=== PATIENT | female | born 2000 | race Two or more races ===

== ENCOUNTER 2020-02-13 13:15 | Emergency (ER) | payer MEDICAID ==
[2020-02-13] MEDS ORDERED: Ondansetron 4 MG/2 ML SDV IVPUSH ONE (13:45)
[2020-02-13] MEDS ORDERED: Dextrose 5%-Lactated Ringers 1,000 ML IV SCH (13:45)
--- NOTE | 2020-02-13 13:54 | EDM.PDOC ---
ED HPI GENERAL MEDICAL PROBLEM - General Chief Complaint: Syncope Stated Complaint: 14 WEEKS PREG-PASSED OUT Time Seen by Provider: 02/13/20 13:44 Source of Information: Reports: Patient, Family () History Limitations: Reports: No Limitations - History of Present Illness INITIAL COMMENTS - FREE TEXT/NARRATIVE: 19-year-old female who is 1 para 0 presents to the ED in the accompaniment of her after suffering a syncopal event at home. They were working in the kitchen making pancakes and her was away from her when he heard her fall to the floor. She felt dizzy lightheaded and was headed to the bathroom as she was thought she was going to vomit. He found her sitting up against the door jam unresponsive. He picked her up and put on the couch and turned the fan on and put a cold cloth on her forehead and within a minute she was able to respond to him normally. He did not witness any tonic-clonic activities to suggest seizure. Patient is 1 para 0 and has been experiencing a lot of nausea and vomiting the with a documented 6 to 8 pound weight loss since the 8-week kiara. Is been able to keep anything down yet this morning. Denies fever chills. At present she does not feel she got hurt other than her right buttock and hip. Particular she denies any head pain. Of note she has diffuse pustular acne of her face forehead with an abscess developing left anterior cheek. Is not been taking any medicine for this. Is nauseated at this time. Orthostatic BPs were unchanged with a blood pressure of 100 systolic standing. Onset: Today Onset Date: 02/13/20 Onset Time: 13:00 Duration: Minutes: Location: Reports: Generalized (Couple event at home. Contusion right buttock hip transient loss of consciousness for 20-30 seconds?) Quality: Reports: Other (Has an ache in her right buttock hip area.) Severity: Moderate Improves with: Reports: Rest Worsens with: Reports: Other (Hurts to touch.) Context: Reports: Other (Syncopal event at home.). Denies: Activity, Exercise, Lifting, Sick Contact, Trauma Associated Symptoms: Reports: Malaise (Is very tired during from the .), Nausea/Vomiting, Weakness. 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 (see below) (Thing will stay down so far today.) Right Hip Pain Score (Numeric/FACES): 6 - Related Data Allergies Allergy/AdvReac Type Severity Reaction Status Date / Time No Known Allergies Allergy Verified 02/13/20 13:26 Home Meds: Home Meds Ondansetron [Zofran ODT] 4 mg PO Q6H PRN 02/13/20 [History] cephALEXin [Cephalexin] 500 mg PO TID #30 capsule 02/13/20 [Rx] Past Medical History : 1 Para: 0 LMP (Approximate): > 3 Months (Jim 14 weeks gestation) - Past Surgical History Oncologic Surgical History: Reports: Lumpectomy Social & Family History - Family History Family Medical History: Noncontributory - Tobacco Use Smoking Status *Q: Never Smoker Second Hand Smoke Exposure: No - Living Situation & Occupation Living situation: Reports: Occupation: Unemployed ED ROS GENERAL - Review of Systems Review Of Systems: See Below Constitutional: Reports: Malaise, Weakness, Fatigue, Decreased Appetite (Due to hyperemesis gravidarum.), Weight Loss. Denies: Fever, Chills HEENT: Reports: No Symptoms Respiratory: Reports: No Symptoms Cardiovascular: Reports: Blood Pressure Problem (Easily gets lightheaded particularly after vomiting. She has not had any syncopal episodes however), Lightheadedness. Denies: Claudication, Dyspnea on Exertion, Edema, Orthopnea, Palpitations (Often in the last 6 weeks) Endocrine: Reports: Fatigue, Polyuria GI/Abdominal: Reports: Decreased Appetite, Nausea, Vomiting (Recurrent nausea and vomiting secondary to would be labeled as hyperemesis gravidarum since she has had greater than a 6 pound weight loss) : Reports: Frequency, Other (Clinically 14 weeks gestation.) Musculoskeletal: Reports: No Symptoms Skin: Reports: Other (Has posterior acne on her face.) Neurological: Reports: Dizziness (Dizzy lightheaded easily), Weakness Psychiatric: Reports: No Symptoms Hematologic/Lymphatic: Reports: No Symptoms Immunologic: Reports: No Symptoms - Physical Exam Exam: See Below Exam Limited By: No Limitations General Appearance: Alert, WD/WN, Anxious, Mild Distress, Other (Temperature is 36.8 heart rate 75 and sinus respiratory to 16 O2 sats 99% room air BP 109 / 74. Supine today was 99/67 and did go up to 101/74 standing.) Eye Exam: Bilateral Eye: Normal Inspection, PERRL Throat/Mouth: Other (Dental or tongue injuries from the fall.) Head Exam: Atraumatic, Normocephalic, Other (No signs of closed head injury.) Neck: Normal Inspection, Supple, Non-Tender, Full Range of Motion. No: Carotid Bruit, Lymphadenopathy (L), Lymphadenopathy (R) Respiratory/Chest: No Respiratory Distress, Lungs Clear, Normal Breath Sounds, No Accessory Muscle Use, Chest Non-Tender Cardiovascular: Normal Peripheral Pulses, Regular Rate, Rhythm, No Edema, No Gallop, No Murmur, No Rub GI/Abdominal: Normal Bowel Sounds, Soft, Non-Tender, No Organomegaly, No Abnormal Bruit, Pelvis Stable, Other (Uterine fundus is just palpable suprapubically which correlates with 14 weeks gestation.) Neuro Exam (Abbreviated): Alert, Oriented, CN II-XII Intact, Normal Cognition, Normal Gait, No Motor/Sensory Deficits, Other (No pronator drift. Normal rapid alternating movements normal [id number] assessment.) Back Exam: Normal Inspection, Full Range of Motion, Other Extremities: Normal Inspection (No pain on firm compression of lumbar and thoracic spine), Normal Range of Motion, Other (He does have some pain on firm palpation over the right buttock just posterior to the greater trochanteric process of the femur. No abrasions appreciated. She can lift her leg off the gurney with no problems and there was no problems with internal/external rotation of either hip.) Psychiatric: Normal Affect, Normal Mood Skin Exam: Other (Patient has a pustular acne of the face involving forehead both facial cheeks and her chin. The pustule on the left cheek is becoming quite erythematous and swollen greater than a centimeter in diameter i.e. early abscess formation.) Course - Vital Signs Last Recorded V/S: Last Vital Signs Temp 36.8 C 02/13/20 13:27 Pulse 75 02/13/20 13:27 Resp 16 02/13/20 13:27 BP 109/74 02/13/20 13:27 Pulse Ox 99 02/13/20 13:27 Orthostatic Blood Pressure [ 101/74 Standing] Orthostatic Blood Pressure [ 101/78 Sitting] Orthostatic Blood Pressure [ 99/67 Supine] - Orders/Labs/Meds Labs: Laboratory Tests 02/13/20 02/13/20 Range/Units 14:00 14:00 WBC 7.01 (3.98-10.04) K/mm3 RBC 4.59 (3.98-5.22) M/mm3 Hgb 12.7 (11.2-15.7) gm/dl Hct 37.8 (34.1-44.9) % MCV 82.4 (79.4-94.8) fl MCH 27.7 (25.6-32.2) pg MCHC 33.6 (32.2-35.5) g/dl RDW Std Deviation 40.9 (36.4-46.3) fL Plt Count 196 (182-369) K/mm3 MPV 10.7 (9.4-12.3) fl Neut % (Auto) 79.5 H (34.0-71.1) % Lymph % (Auto) 14.4 L (19.3-51.7) % [place] % (Auto) 5.3 (4.7-12.5) % Eos % (Auto) 0.6 L (0.7-5.8) Baso % (Auto) 0.1 (0.1-1.2) % Neut # (Auto) 5.57 (1.56-6.13) K/mm3 Lymph # (Auto) 1.01 L (1.18-3.74) K/mm3 [place] # (Auto) 0.37 H (0.24-0.36) K/mm3 Eos # (Auto) 0.04 (0.04-0.36) K/mm3 Baso # (Auto) 0.01 (0.01-0.08) K/mm3 Sodium 137 (136-145) mEq/L Potassium 3.7 (3.5-5.1) mEq/L Chloride 102 (98-107) mEq/L Carbon Dioxide 27 (21-32) mEq/L Anion Gap 11.7 (5-15) BUN 9 (7-18) mg/dL Creatinine 0.7 (0.55-1.02) mg/dL Est Cr Clr Drug Dosing 89.04 mL/min Estimated GFR (MDRD) > 60 (>60) mL/min BUN/Creatinine Ratio 12.9 L (14-18) Glucose 72 L (74-106) mg/dL Calcium 8.6 (8.5-10.1) mg/dL Magnesium 1.9 (1.8-2.4) mg/dl Total Bilirubin 0.8 (0.2-1.0) mg/dL AST 11 L (15-37) U/L ALT 12 L (14-59) U/L Alkaline Phosphatase 61 (46-116) U/L Total Protein 7.1 (6.4-8.2) g/dl Albumin 3.3 L (3.4-5.0) g/dl Globulin 3.8 gm/dL Albumin/Globulin Ratio 0.9 L (1-2) Meds: Medications Discontinued Medications Generic Name Dose Route Start Last Admin Trade Name Freq PRN Reason Stop Dose Admin Dextrose/Lactated Ringer's 1,000 mls @ 999 mls/hr 02/13/20 13:45 02/13/20 14:00 Dextrose 5%-Lactated Ringers IV 999 mls/hr ASDIRECTED CRIS Administration Ondansetron HCl 4 mg 02/13/20 13:45 02/13/20 13:59 Zofran IVPUSH 02/13/20 13:46 4 mg ONETIME ONE Administration - Radiology Interpretation Free Text/Narrative:: 19-year-old female who is 1, para 0 presents to the ED after suffering a syncopal event at home this afternoon. She is suffering hyperemesis gravidarum with a 6 to 8 pound weight loss in the last 6 weeks. She began vomiting at 8 weeks gestation continues to have problems retaining food. She has not been able to keep anything down so far today. She was standing in the kitchen getting ready to make some pancakes for dinner when she started to feel lightheaded dizzy and moved towards the bathroom as she thought she was going to vomit. Her heard her fall and attended to her and found her slumped up against the door jam outside the bathroom. He picked her up and placed on the couch and put a cool cloth on her forehead and the fan on and this seemed to help. Patient was able to respond normally to them within 30 seconds to a minute. She is not orthostatic here. Only injury is a contusion to the right buttock just posterior to the greater trochanteric process of her hip. No other injuries appear to have occurred to the head or neck or ribs or upper extremities. Spine is intact. She does have a pustular acne of her face that deserves antibiotic treatment. Dnaiel she will have IV fluids D5 Ringer's lactate at open. Routine labs to be performed and the plan will be to place her on ce phalexin 500 mg 3 times daily for 10 days for the pustular acne of the face as she is developing a abscess over her left facial cheek. - Re-Assessments/Exams Free Text/Narrative Re-Assessment/Exam: 02/13/20 16:14 White count is 7.01. Auto differential is 79.5% neutrophils. Hemoglobin is 12.7 with hematocrit of 37.8. Platelet count is normal 196,000. Chemistry shows a sodium of 137 and potassium of 3.7. Chloride 102 with a bicarb of 27 and a gap is 11.7. BUN is 9 with a creatinine of 0.7. GFR is greater than 60. BUN/creatinine ratio is 12.9 glucose is slightly low at 72. Calcium 8.6 magnesium 1.9. Liver function normal total protein 7.1 with slightly low albumin fraction at 3.3. Feeling better after liter of IV fluids and the Zofran IV. Discharge her home. She has Zofran tablets at home for nausea and vomiting if needed. I plan on placing her on cephalexin 500 mg 3 times daily for the next 10 days to help clear up pustular acne of the face with developing abscess over the left mid cheek. Departure - Departure Time of Disposition: 16:17 Disposition: Home, Self-Care 01 Condition: Fair Clinical Impression: Second trimester , Hyperemesis gravidarum, Syncope and collapse, Orthostatic hypotension, Pustular acne - Discharge Information *PRESCRIPTION DRUG MONITORING PROGRAM REVIEWED*: Not Applicable *COPY OF PRESCRIPTION DRUG MONITORING REPORT IN PATIENT FIGUEROA: Not Applicable Prescriptions: cephALEXin [Cephalexin] 500 mg PO TID #30 capsule Instructions: Orthostatic Hypotension, Hyperemesis Gravidarum, Second Trimester of , [id number] Referrals: Jasmina Chambers MD [Primary Care Provider] - Forms: ED Department Discharge Additional Instructions: Evaluation in the emergency room today in regards to a syncope or fainting spell at home today with collapse to the floor. The injuries identified on examination were contusion to the muscles of the right buttock and posterior hip area. Injuries to the head or neck chest abdomen identified. The cause of the syncope is multifactorial. You had not been able to eat or drink much today due to hyperemesis gravidarum or recurrent vomiting during . Therefore volume depletion and hypoglycemia contributed to syncopal event. Blood pressure also runs very low in young women in early . Also vagal reflex which kicks in when you were going to vomit slows her heart beat down and drops her blood pressure which also could make you faint. Test did identify that you were mildly volume depleted and low blood sugar. You are treated with a liter of IV fluids while in the ED and Zofran 4 mg IV for nausea relief. You can continue to use the Zofran sublingual at home as needed for nausea vomiting relief. Diet as able. Examination reveals that you have pustular acne with developing abscess over your left facial cheek. This requires treatment with antibiotics. You are to take cephalexin 500 mg 3 times daily for the next 10 days to clear up this infection. Of note this medication is safe in . Aloe up with [employer] as planned. Sepsis Event Note (ED) - Evaluation Sepsis Screening Result: No Definite Risk - Focused Exam Vital Signs: Vital Signs Temp Pulse Resp BP Pulse Ox 02/13/20 13:27 36.8 C 75 16 109/74 99
== END 2020-02-13 16:49 | disposition home or self-care (01) ==
LOC: JD.ED 13:15
DX: O21.0 Mild hyperemesis gravidarum (principal); O99.89 Other specified diseases and conditions complicating pregnancy, childbirth and the puerperium; O99.712 Diseases of the skin and subcutaneous tissue complicating pregnancy, second trimester; R55 Syncope and collapse; L70.0 Acne vulgaris; Z3A.14 14 weeks gestation of pregnancy
CPT/HCPCS: 36415; 80053; 83735; 85025; 96361; 96374; 99284; J2405; J7121